=== PATIENT | male | born 1995 | race African-American/Black ===

== ENCOUNTER 2020-09-27 16:28 | Emergency (ER) | payer BC, SELFPAY ==
[2020-09-27 16:40] VITALS: BP 133/78; PULSE 79; RESP 18; TEMP 36.4; O2SAT 100
--- NOTE | 2020-09-27 17:03 | ED.PSYCH ---
HPI - Psych General Chief Complaint: Psychiatric Symptoms Stated Complaint: depression Time Seen by Provider: 09/27/20 17:03 Source: patient and family Mode of arrival: ambulatory Limitations: no limitations History of Present Illness HPI Narrative: Patient is a 24-year-old male with a history of anxiety and depression who presents for evaluation of suicidal thoughts. Patient states over the past week he has been feeling depressed with thoughts to harm himself but has no specific plan, has no intent to actually complete any plan. He states he feels sad that his parents are getting older and that he missed out on time with them. Patient does not have any illness present in his parents. His parents are both healthy. Patient states he feels like he is getting to know them better now and just really values being with them and is concerned given he is 24 and feels like he is wasted spending time with them. Patient denies any access to firearms. He denies history of suicidal attempt in the past, and no history of hospitalization. He reports marijuana use without other drug use. Patient denies any auditory or visual hallucinations. Patient states he had a history of hepatitis C from , but has no history of IV drug abuse. Patient is not currently undergoing any treatment for this. Related Data Home Medications Medication Instructions Recorded Confirmed No Home Medications 09/27/20 09/27/20 Allergies Allergy/AdvReac Type Severity Reaction Status Date / Time No Known Allergies Allergy Verified 09/27/20 16:56 Review of Systems Review of Systems: Narrative: CONSTITUTIONAL: Denies fever, chills, or sweats. EYES: Denies visual changes, redness, or discharge. ENT: Denies rhinorrhea, congestion, sore throat, or otalgia. CARDIOVASCULAR: Denies chest pain, palpitations, or edema. RESPIRATORY: Denies cough or dyspnea. GASTROINTESTINAL: Denies abdominal pain, nausea, vomiting, or diarrhea. GENITOURINARY: Denies dysuria or hematuria. SKIN: Denies rash or itching. MUSCULOSKELETAL: Denies back pain, joint pain, or myalgia. NEUROLOGIC: Denies headache, numbness, or weakness. PSYCHIATRIC: Reports anxiety and depression [facility] Past Medical History Medical History (Updated 09/27/20 @ 18:14 by Yessica Salcedo MD) Anxiety Depression Hepatitis C Surgical History Surgical History (Updated 09/27/20 @ 17:31 by Yessica Salcedo MD) No pertinent past surgical history Social History Social History (Updated 09/27/20 @ 17:32 by Yessica Salcedo MD) Smoking status: Former smoker Tobacco type: e-cigarettes/vaping Alcohol intake: never Substance use: current Substance use type: marijuana Living arrangements: with family Occupation/Education: occupation Additional occupation/education comments: [employer] Gender identity (if verbalized by the patient): Male Exam Narrative: Exam Narrative: GENERAL: Awake, alert, conversant HEAD: Normocephalic, atraumatic. EYES: PERRLA and EOMI. ENT: Nares clear, no rhinorrhea or epistaxis. Mucous membranes moist. NECK: Supple. CHEST: No respiratory distress, breathing even and non labored HEART: Regular rate, sinus rhythm ABDOMEN:Non distended, non tender EXTREMITIES: Normal range of motion. No edema. SKIN: Warm, dry, no rash. NEURO:No focal deficits. Alert and oriented x3 Course Vital Signs Vital signs: Vital Signs Temperature 36.4 C 09/27/20 16:40 Pulse Rate 79 09/27/20 16:40 Respiratory Rate 18 09/27/20 16:40 Blood Pressure 133/78 09/27/20 16:40 Pulse Oximetry 100 09/27/20 16:40 Temperature 36.4 C 09/27/20 16:40 Pulse Rate 79 09/27/20 16:40 Respiratory Rate 18 09/27/20 16:40 Blood Pressure 133/78 09/27/20 16:40 Pulse Oximetry 100 09/27/20 16:40 MDM - Psych MDM Narrative Medical decision making narrative: Patient presented for evaluation passive suicidal ideation without a specific plan. Laboratory results are reassurin
[2020-09-27 17:07] LABS: Basophils Percent Auto 0.5 % (0.2-1.2); Hematocrit 45.1 % (42.0-52.0); Hemoglobin 14.6 g/dL (14.0-18.0); Immature Granulocyte Absolute 0.01 K/mm3 (0.00-0.031); Immature Granulocyte Percent A 0.2 % (0-0.5); Lymphocytes Absolute Auto 1.55 K/mm3 (0.9-3.2); Lymphocytes Percent Auto 23.6 % (18.3-44.2); Mean Corpuscular HGB Conc 32.4 g/dl (32-36); Mean Corpuscular Hemoglobin 27.3 pg (26-34); Mean Corpuscular Volume 84.5 fl (80-100); Mean Platelet Volume 10.1 fl (7.4-10.4); Monocytes Absolute Auto 0.6 K/mm3 (0.1-0.6); Monocytes Percent Auto 8.5 % (2.6-8.5); Neutrophils Absolute Auto 4.4 K/mm3 (1.3-6.7); Neutrophils Percent Auto 67.2 % (45.5-73.1); Platelet Count Result 211 k/mm3 (150-375); Red Blood Count 5.34 M/mm3 (4.6-6.20); White Blood Count 6.6 K/mm3 (4.5-10.0)
[2020-09-27 17:13] LABS: Add Urine Microscopic? YES; Appearance Urine Clear (Clear); Bilirubin Urine Negative (Negative); Blood Urine Negative (Negative); Color Urine Yellow (Yellow); Glucose Urine UA Negative (Negative); Ketones Urine Negative (Negative); Leukocyte Esterase Ur Negative LEU/UL (Negative); Mucus Urine Heavy /lpf; Nitrate Urine Negative (Negative); Protein Urine 1+ mg/dL (Negative); RBC Urine 0-2 /hpf (0-2); Specific Grav Ur 1.024 (1.001-1.035); Squamous Epithelial Cell Urine Rare /hpf (Few); WBC Urine 0-3 /hpf
[2020-09-27 17:18] LABS: Alanine Aminotransferase 45 U/L (4-50); Albumin Level 4.5 g/dL (3.5-5.1); Alkaline Phosphatase 48 U/L (38-126); Anion Gap 7 mmol/L (8-16); Aspartate Amino Transferase 35 U/L (17-59); Bilirubin,Total 1.3 mg/dL (0.2-1.3); Blood Urea Nitrogen 9 mg/dL (9-20); Calcium 9.3 mg/dL (8.4-10.2); Carbon Dioxide 32 mmol/L (22-30); Chloride 101 mmol/L (98-107); Estimated CRCL calculation 129 ml/min; Estimated Glomerular Filt Rate > 60; Glucose 141 mg/dL (75-110); Potassium 3.7 mmol/L (3.4-5.0); Sodium 140 mmol/L (137-145)
[2020-09-27 17:19] LABS: Ethanol < 10 mg/dL (<10)
[2020-09-27 17:29] LABS: Amphetamine Screen Urine Negative (Negative); Barbiturate Screen Urine Negative (Negative); Benzodiazepines Screen Urine Negative (Negative); Cannabinoid Screen Urine Positive (Negative); Cocaine Screen Urine Negative (Negative); Methadone Screen Urine Negative (Negative); Opiate Screen Urine Negative (Negative); Phencyclidine Screen Urine Negative (Negative)
== END 2020-09-27 19:53 | disposition home or self-care (01) ==
PROVIDERS: Family Medicine; Emergency Provider Emergency Medicine
DX: F32.1 Major depressive disorder, single episode, moderate (principal); F41.9 Anxiety disorder, unspecified; Z86.19 Personal history of other infectious and parasitic diseases; Z87.891 Personal history of nicotine dependence
CPT/HCPCS: 36415; 80053; 80307; 81001; 84443; 85025; 99284